=== PATIENT | female | born 1995 | race Two or more races ===

== ENCOUNTER 2022-03-05 11:43 | Emergency (ER) | payer BC ==
[~2022-03-05] VITALS: Ht 170.2 cm; Wt 60.3 kg
--- NOTE | 2022-03-05 11:57 | NUR ---
TO ER BED 10, BIBS C/O LOWER ABD PAIN RAD TO BACK STARTED THIS AM +N/V/D. HX OF OVARIAN CYST, AAOX3, BREATHING EVEN AND NON LABORED, AWAITING MD OSEGUERA
--- NOTE | 2022-03-05 12:00 | NUR ---
URINE COLLECTED AND SENT TO LAB
[2022-03-05] MEDS ORDERED: ACETAMINOPHEN ES 500 MG TABLET ONE (12:18)
[2022-03-05] MEDS ORDERED: IBUPROFEN 600 MG TABLET ONE (12:18)
[2022-03-05] MEDS ORDERED: ACETAMINOPHEN ES 500 MG TABLET PO ONE (12:30)
[2022-03-05] MEDS ORDERED: IBUPROFEN 600 MG TABLET PO ONE (12:30)
[2022-03-05 12:39] LABS: BILIRUBIN,URINE NEGATIVE (NEGATIVE); COLOR,URINE YELLOW (YELLOW); LEUKOCYTE ESTERASE ,URINE NEGATIVE (NEGATIVE); NITRITE, URINE NEGATIVE (NEGATIVE); PROTEIN,URINE NEGATIVE (NEGATIVE); UGLUCOSE NEGATIVE (NEGATIVE); UROBILINOGEN,URINE 0.2 EU/dL (0.2)
--- NOTE | 2022-03-05 13:20 | NUR ---
US TECH AT BEDSIDE FOR PELVIC ULTRASOUND
[2022-03-05 13:24] LABS: BACTERIA,URINE Rare /HPF (None Seen); MUCUS,URINE Few /LPF (None Seen); SQUAMOUS EPITHELIAL CELL,UR Few /HPF (None Seen); WBC,URINE 0-2 /HPF (0-3)
[2022-03-05 14:44] VITALS: BP 102/61
--- NOTE | 2022-03-05 14:44 | NUR ---
Patient discharged to home in stable condition. Written and verbal after care instructions given. Patient verbalizes understanding of instruction.
== END 2022-03-05 14:45 | disposition home or self-care (01) ==
LOC: ER 11:52
DX: N83.202 Unspecified ovarian cyst, left side (principal); J45.909 Unspecified asthma, uncomplicated; Z87.42 Personal history of other diseases of the female genital tract; Z88.2 Allergy status to sulfonamides
CPT/HCPCS: 76856-TC; 81001; 84703-TC